=== PATIENT | female | born 1970 | race Caucasian/White ===

== ENCOUNTER 2018-01-16 08:08 | Emergency (ER) | payer MEDICAID ==
[~2018-01-16] VITALS: Ht 160 cm; Wt 45.0 kg
[~2018-01-16 08:08] MED LIST: ALBU6.7H INH; AZIT-57 PO; AZIT500T2 PO; FLUT16SP2 BOTHNARES; LORA-835 PO; NICO-687 TOP
[2018-01-16 08:21] VITALS: BP 118/75
== END 2018-01-16 08:39 | disposition home or self-care (01) ==
LOC: ER 08:08
DX: Z02.89 Encounter for other administrative examinations (principal); Z90.710 Acquired absence of both cervix and uterus; Z88.8 Allergy status to other drugs, medicaments and biological substances
CPT/HCPCS: 99281

== ENCOUNTER 2018-02-20 16:13 | Emergency (ER) | payer MEDICAID ==
[~2018-02-20] VITALS: Ht 162.6 cm; Wt 38.5 kg
[~2018-02-20 16:13] MED LIST changes: -AZIT-57 PO; -NICO-687 TOP
[2018-02-20 16:56] VITALS: BP 142/91
== END 2018-02-20 18:45 | disposition left against medical advice (07) ==
LOC: ER 16:14
DX: R09.81 Nasal congestion (principal); Z53.21 Procedure and treatment not carried out due to patient leaving prior to being seen by health care provider